=== PATIENT | female | born 1960 ===

== ENCOUNTER 2017-07-09 18:52 | Emergency (ER) | payer BC ==
[~2017-07-09] VITALS: Ht 162.6 cm; Wt 53.0 kg
[~2017-07-09 18:52] MED LIST: BUPR150T3 PO; TAB-TAB PO
[2017-07-09 18:59] VITALS: BP 127/62; PULSE 70; RESP 18; TEMP 98.8; O2SAT 99
[2017-07-09] MEDS ORDERED: LEXA10TA PO (19:14)
[2017-07-09] MEDS ORDERED: KETOROLAC TROMETHAMINE 60 MG/2 ML (IM) VIAL IM ONE (19:30)
[2017-07-09] MEDS ORDERED: ORPHENADRINE INJ 60 MG/2 ML AMP IM ONE (19:30)
--- NOTE | 2017-07-09 19:38 | PD ---
HPI Chief Complaint: Pain: Acute or Chronic Time Seen by Provider: 19:25 Travel History International Travel<30 days: No Contact w/Intl Traveler<30days: No Traveled to known affect area: No History of Present Illness HPI 57 -year-old female here with right neck spasm 3 days. Patient reports she recently started a new body workout routine and believes the cause muscle spasm on the right side of her neck. Symptoms present for 3 days. She reports that as stiffness and spasming which is intermittent. Worse with movement of the neck from left to right and palpation of the area. Slightly relieved with rest. She denies headache, chest pain, shortness of breath, paresthesia or weakness in the extremities. PFSH Past Medical History Anxiety: Yes Depression: Yes Cancer: No Cardiovascular Problems: No Diabetes: No Diminished Hearing: No Endocrine: No Genitourinary: No Hepatitis: No Hiatal Hernia: No Immune Disorder: No Musculoskeletal: No Neurologic: No Psychiatric: Yes (ANXIETY, DEPRESSION) Reproductive: No Respiratory: No Immunizations Current: Yes Thyroid Disease: No Tetanus Vaccination: < 5 Years Influenza Vaccination: No ?: Not Menopausal: Yes Past Surgical History AICD: No Section: Yes Gynecologic Surgery: Yes (C SEC) Joint Replacement: No Oral Surgery: Yes (TONSILLECTOMY) Pacemaker: No Tonsillectomy: Yes Other Surgery: Yes (septoplasty) Social History Alcohol Use: Yes (occ) Tobacco Use: No Substance Use: No Allergies-Medications (Allergen,Severity, Reaction): Coded Allergies: No Known Allergies (Unverified Adverse Reaction, Unknown, 07/09/17) Reported Meds & Prescriptions Reported Meds & Active Scripts Active Reported Lexapro (Escitalopram Oxalate) 10 Mg Tab 10 Mg PO DAILY Review of Systems Except as stated in HPI: all other systems reviewed are Neg Eyes: No: Visual changes HENT: No: Headaches Cardiovascular: No: Chest Pain or Discomfort Respiratory: No: Shortness of Breath Gastrointestinal: No: Abdominal Pain Physical Exam Narrative GENERAL: Well-nourished, well-developed patient. SKIN: Focused skin assessment warm/dry. HEAD: Normocephalic. EYES: No scleral icterus. No injection or drainage. NECK: Supple, trachea midline. No JVD or lymphadenopathy. TTP right cervical paraspinous musculature. Right trapezius muscle spasm CARDIOVASCULAR: Regular rate and rhythm without murmurs, gallops, or rubs. RESPIRATORY: Breath sounds equal bilaterally. No accessory muscle use. GASTROINTESTINAL: Abdomen soft, non-tender, nondistended. MUSCULOSKELETAL: No cyanosis, or edema. Equal hand grasp. Normal strength and sensation in the upper extremities BACK: Nontender without obvious deformity. No CVA tenderness. Data Data Last Documented VS Vital Signs Date Time Temp Pulse Resp B/P (MAP) Pulse Ox O2 Delivery O2 Flow Rate FiO2 07/09/17 19:14 (83) 07/09/17 18:59 98.8 70 18 99 Orders Orders Ketorolac Inj (Toradol Inj) (07/09/17 19:30) Orphenadrine Inj (Norflex Inj) (07/09/17 19:30) MDM Medical Decision Making Medical Screen Exam Complete: Yes Emergency Medical Condition: Yes Differential Diagnosis Cervical strain, trapezius muscle spasm, torticollis Narrative Course 57 -year-old female here with right neck pain and stiffness after starting workout routine 3 days ago. On exam she has tenderness of the cervical paraspinous musculature. No midline cervical spine tenderness. Right-sided trapezius muscle spasm. She has a normal neurologic exam. She'll be given a shot of Toradol and Norflex observed and reassessed. Patient reassessed she reports symptom improvement and is requesting discharge. Patient will be discharged home with NSAIDs and muscle relaxers. Diagnosis Primary Impression: Trapezius muscle spasm Referrals: Primary Care Physician Additional Instructions: Take the medication as prescribed. Avoid heavy lifting or strenuous activity. Apply ice and/or heat for comfort. Follow-up with her doctor. Scripts Methocarbamol (Robaxin) 500 Mg Tab 500 MG PO TID for Muscle Spasm for 4 Days, #12 TAB 0 Refills Prov: Latasha Samano 07/09/17 Ibuprofen (Ibuprofen) 800 Mg Tab 800 MG PO Q6HR Y for PAIN, #40 TAB 0 Refills Prov: Latasha Samano 07/09/17 Disposition: 01 DISCHARGE HOME Condition: Stable Latasha Samano Jul 09, 2017 19:38
[2017-07-09] MEDS ORDERED: ROBA500T PO (20:08)
[2017-07-09] MEDS ORDERED: IBUP1TAB7 PO (20:08)
== END 2017-07-09 20:14 | disposition home or self-care (01) ==
LOC: PHEFT 18:52
DX: M62.830 Muscle spasm of back (principal)
CPT/HCPCS: 96372; 99284; J1885; J2360